=== PATIENT | female | born 1975 | race Caucasian/White ===

== ENCOUNTER 2017-08-14 19:02 | Outpatient (CLI) | payer BC ==
[~2017-08-14] VITALS: Ht 170.2 cm; Wt 106.6 kg
[2017-08-14 19:45] VITALS: BP 131/75
== END 2017-08-14 20:30 | disposition home or self-care (01) ==
LOC: LDOP 19:02
PROVIDERS: ATTEND Obstetrics & Gynecology
DX: O09.513 Supervision of elderly primigravida, third trimester (principal); O42.92 Full-term premature rupture of membranes, unspecified as to length of time between rupture and onset of labor; Z3A.39 39 weeks gestation of pregnancy
CPT/HCPCS: 59025; 89060; 99201; G0463; Q0114

== ENCOUNTER 2017-08-15 16:42 | Inpatient (IN) | payer BC ==
[~2017-08-15] VITALS: Ht 170.2 cm; Wt 107.0 kg
[2017-08-15] MEDS ORDERED: OXYTOCIN 30U/ 0.9% NaCL 500ML 500 ML IV PRN (17:14)
[2017-08-15] MEDS ORDERED: OXYTOCIN 30U/ 0.9% NaCL 500ML 500 ML IV ONE (17:14)
[2017-08-15 17:25] VITALS: BP 124/70
[2017-08-15] MEDS ORDERED: FENTANYL PF 100 MCG/2ML IV PRN (17:30)
[2017-08-15] MEDS ORDERED: FENTANYL PF 100 MCG/2ML IVPush PRN (17:30)
[2017-08-15] MEDS ORDERED: ONDANSETRON 2MG/ML, 2ML IVPush PRN (17:30)
[2017-08-15 17:39] LABS: HEMATOCRIT 35.9 % (34.6-47.8); HEMOGLOBIN 12.1 g/dL (11.7-16.4); WHITE BLOOD COUNT 10.9 x10^3/uL (3.4-10)
[2017-08-15] MEDS: LACTATED RINGERS 1,000 ML IV SCH (17:49)
[2017-08-15] MEDS ORDERED: AMPICILLIN 2 GM in SODIUM CHLORIDE 0.9% 100 ML IVPB STA (17:50)
[2017-08-15] MEDS ORDERED: NEWBORN KIT ONE (17:52)
[2017-08-15] MEDS ORDERED: OXYTOCIN 30U/ 0.9% NaCL 500ML 500 ML ONE (17:53)
[2017-08-15] MEDS ORDERED: FENTANYL PF 100 MCG/2ML ONE (20:55)
[2017-08-15] MEDS ORDERED: FENTANYL/BUPIV./NS/PF 0 ML EPIDCONT ONE (20:56)
[2017-08-15] MEDS ORDERED: BUPIVACAINE 0.25% ONE (20:56)
[2017-08-15] MEDS ORDERED: FENTANYL/BUPIV./NS/PF 250 ML EPIDCONT ONE (21:00)
[2017-08-15] MEDS: AMPICILLIN 1 GM in SODIUM CHLORIDE 0.9% 50 ML IVPB SCH (22:06)
[2017-08-15] MEDS: OXYTOCIN 30U/ 0.9% NaCL 500ML 500 ML IV SCH (22:43)
[2017-08-15] MEDS ORDERED: MISOPROSTOL 200 MCG TABLET PR PRN (23:00)
[2017-08-15] MEDS ORDERED: ONDANSETRON 2MG/ML, 2ML IV PRN (23:00)
[2017-08-16] VITALS (7 sets, daily range): BP systolic 102–140; BP diastolic 64–82
[2017-08-16] MEDS ORDERED: LIDOCAINE 1%, 20ML ONE (00:01)
[2017-08-16] MEDS ORDERED: MISOPROSTOL 200 MCG TABLET ONE (00:01)
[2017-08-16] MEDS ORDERED: IBUPROFEN 600 MG TABLET ONE (00:52)
[2017-08-16] MEDS ORDERED: OXYcodone/APAP 5/325MG TABLET ONE ×2 (00:52→00:53)
[2017-08-16] MEDS: OXYcodone/APAP 5/325MG TABLET PO PRN ×4 (00:54→19:24)
[2017-08-16] MEDS ORDERED: OXYTOCIN 30U/ 0.9% NaCL 500ML 500 ML ONE (01:00)
[2017-08-16] MEDS: LACTATED RINGERS 1,000 ML IV SCH ×2 (01:14→04:24)
[2017-08-16] MEDS: AMPICILLIN 1 GM in SODIUM CHLORIDE 0.9% 50 ML IVPB SCH ×2 (02:00→04:25)
[2017-08-16] MEDS ORDERED: PRENATAL VIT/IRON/FA 1 EACH TABLET ONE (07:33)
[2017-08-16] MEDS: PRENATAL VIT/IRON/FA 1 EACH TABLET PO SCH (07:39)
[2017-08-16] MEDS: IBUPROFEN 600 MG TABLET PO PRN ×3 (07:39→19:24)
[2017-08-16] MEDS: DOCUSATE 100 MG CAPSULE PO PRN ×2 (07:39→19:24)
[2017-08-16 08:28] LABS: HEMOGLOBIN 9.7 g/dL (11.7-16.4); WHITE BLOOD COUNT 16.8 x10^3/uL (3.4-10)
[2017-08-16] MEDS: OXYTOCIN 30U/ 0.9% NaCL 500ML 500 ML IV SCH ×3 (08:43→23:54)
[2017-08-17] MEDS: IBUPROFEN 600 MG TABLET PO PRN ×4 (01:51→21:41)
[2017-08-17] MEDS: OXYcodone/APAP 5/325MG TABLET PO PRN ×4 (01:52→20:02)
[2017-08-17 07:30] VITALS: BP 113/73
[2017-08-17] MEDS: DOCUSATE 100 MG CAPSULE PO PRN ×2 (07:39→20:02)
[2017-08-17] MEDS: PRENATAL VIT/IRON/FA 1 EACH TABLET PO SCH (07:39)
[2017-08-17] MEDS: LACTATED RINGERS 1,000 ML IV SCH ×2 (09:14→17:14)
[2017-08-17 11:45] VITALS: BP 126/70
[2017-08-17] MEDS: FERROUS SULFATE 325 MG TABLET PO SCH (16:54)
[2017-08-17 20:00] VITALS: BP 136/73
[2017-08-18] MEDS: OXYcodone/APAP 5/325MG TABLET PO PRN ×3 (00:27→12:02)
[2017-08-18] MEDS: OXYTOCIN 30U/ 0.9% NaCL 500ML 500 ML IV SCH ×2 (00:43→00:51)
[2017-08-18] MEDS: LACTATED RINGERS 1,000 ML IV SCH ×2 (01:14→02:37)
[2017-08-18] MEDS: IBUPROFEN 600 MG TABLET PO PRN ×2 (06:09→12:02)
[2017-08-18] MEDS: DOCUSATE 100 MG CAPSULE PO PRN (07:45)
[2017-08-18] MEDS: FERROUS SULFATE 325 MG TABLET PO SCH (07:45)
[2017-08-18] MEDS: PRENATAL VIT/IRON/FA 1 EACH TABLET PO SCH (07:45)
[2017-08-18 09:21] VITALS: BP 131/72
[2017-08-18] MEDS ORDERED: IBUP-1222 PO (12:30)
[2017-08-18] MEDS ORDERED: OXYC-302 PO (12:31)
[2017-08-18] MEDS ORDERED: FERR-36 PO (12:32)
== END 2017-08-18 14:45 | disposition home or self-care (01) | DRG 775 ==
LOC: LDOP 16:42 → LDIP 17:13 → UNDOADMIN 17:17 → LDIP 17:17 → 2NW 08-16 02:40
PROVIDERS: ADMIT Obstetrics & Gynecology; ATTEND Obstetrics & Gynecology
PROC: 10E0XZZ Delivery of Products of Conception, External Approach (ICD-10-PCS; principal; 2017-08-16)
PROC: 0KQM0ZZ Repair Perineum Muscle, Open Approach (ICD-10-PCS; 2017-08-16)
DX: O99.824 Streptococcus B carrier state complicating childbirth (principal); Z37.0 Single live birth; Z3A.39 39 weeks gestation of pregnancy; O70.1 Second degree perineal laceration during delivery; Z87.442 Personal history of urinary calculi
CPT/HCPCS: 36415; 85025; 86850; 86900; J0290; J3010; J7120